=== PATIENT | female | born 1945 | race Caucasian/White ===

== ENCOUNTER 2017-06-29 09:16 | Emergency (ER) | payer MEDICARE, BC ==
[2017-06-29 09:52] VITALS: BP 131/66
--- NOTE | 2017-06-29 10:14 | UC ---
Complaint Female HPI - HPI Summary HPI Summary: 71F presents with potential UTI. She was treated for UTI two weeks ago with cipro and flagyl. She was told she has BV. She states her symptoms resolved. She traveled here from [place] yesterday. She woke up with morning and and states she has mucous discharge and blood when she wiped. She has had blood in urine before. She denies any dysuria, flank pain. she has some frequency but is less than had last UTI. she denies any fever, nausea or vomiting. no history of kidney stones. she has a family history of bladder cancer. She had hysterectomy many years ago. - History Of Current Complaint Chief Complaint: UCGU Stated Complaint: URINARY COMPLAINT Time Seen by Provider: 06/29/17 10:02 - Allergies/Home Medications Allergies/Adverse Reactions: Allergies Allergy/AdvReac Type Severity Reaction Status Date / Time No Known Allergies Allergy Verified 06/29/17 09:40 Home Medications: Home Medications Simvastatin [Zocor 40 MG (NF)] 40 mg BEDTIME 06/29/17 [History Confirmed ] PMH/Surg Hx/FS Hx/Imm Hx Endocrine History: Other Other Endocrine History: no DM Cardiovascular History: Other Other Cardiovascular History: cholesterol - Surgical History Surgical History: Yes Surgery Procedure, Year, and Place: UPPER RIGHT COLON RESECTION D/T CX. Appendix/Spleen. Hysterectomy - Family History Known Family History: Positive: Hypertension - Social History Alcohol Use: Rare Substance Use Type: None Smoking Status (MU): Never Smoked Tobacco - Immunization History Most Recent Influenza Vaccination: NOT YET 2017 Review of Systems Constitutional: Negative Respiratory: Negative Genitourinary: Hematuria, Frequency All Other Systems Reviewed And Are Negative: Yes Physical Exam Triage Information Reviewed: Yes Appearance: Well-Appearing Vital Signs: Initial Vital Signs Temp 97.9 F 06/29/17 09:41 Pulse 65 06/29/17 09:41 Resp 16 06/29/17 09:41 BP 131/66 06/29/17 09:41 Pulse Ox 97 06/29/17 09:41 Vital Signs Reviewed: Yes Eyes: Positive: Conjunctiva Clear ENT: Positive: Hearing grossly normal Respiratory: Positive: Lungs clear, Normal breath sounds Cardiovascular: Positive: RRR Abdomen Description: Positive: Nontender, Soft, Other: - no vaginal bleeding or discharge. normal external exam. no CMT.. Negative: CVA Tenderness (R), CVA Tenderness (L) Bowel Sounds: Positive: Present Musculoskeletal: Positive: ROM Intact Neurological: Positive: Alert Psychological: Positive: Age Appropriate Behavior Skin Exam: Normal Complaint Female Dx - Course Course Of Treatment: 71F presents with potential UTI. She was treated for UTI two weeks ago with cipro and flagyl. She was told she has BV. She states her symptoms resolved. She traveled here from [place] yesterday. She woke up with morning and and states she has mucous discharge and blood when she wiped. She has had blood in urine before. She denies any dysuria, flank pain. she has some frequency but is less than had last UTI. she denies any fever, nausea or vomiting. no history of kidney stones. she has a family history of bladder cancer. has history of hysterectomy. on exam nontender abd, no CVA tenderness. normal pelvic. no bleeding or discharge. got BV cultures. on exam does not appear to have BV so will not treat. urine leuko est +2. will treat as uti as wait for final culture. gave referral to urology about hematuria. does not appear like kidney stone patient at this time but warned if developed flank pain to go to ED. medications reviewed. told to follow up about pre-HTN numbers with primary. patient understands and agrees with plan. - Differential Dx/Diagnosis Differential Diagnosis/HQI/PQRI: Ureteral Stone, Urinary Tract Infection, Other - BV Provider Diagnoses: hematuria, uti Discharge - Discharge Plan Condition: Good Disposition: HOME Prescriptions: Ciprofloxacin TAB* [Cipro 500 MG TAB*] 500 mg PO BID #10 tab Patient Education Materials: Urinary Tract Infection in Women (ED) Referrals: [facility] [place] [facility] [place] [facility] [Outside] Non Staff,Doctor [Primary Care Provider] - Armando Mackey MD [Medical Doctor] - Additional Instructions: Follow up with urology Take cipro twice a day for 5 days Go to ED if develop flank pain, nausea, vomiting or any new or worsening symptoms
--- NOTE | 2017-07-01 08:00 | UC ---
Progress - Progress Note Progress Note: notify patient NO UTI Stop cipro needs to follow up with her PCP for investigation of her microscopic hematuria
== END 2017-06-29 10:47 | disposition home or self-care (01) ==
LOC: UCCORT 09:16
DX: R31.29 Other microscopic hematuria (principal)
CPT/HCPCS: 81003; 87086; 87480; 87510; 99202; G0463

== ENCOUNTER 2017-09-11 17:45 | Emergency (ER) | payer MEDICARE, BC ==
[2017-09-11 18:04] VITALS: BP 164/69
--- NOTE | 2017-09-11 18:05 | UC ---
Cardiac HPI - HPI Summary HPI Summary: 71 yo female feeling anxious and comfortable today Had 1 1/2 hour of mod chest pressure no sob no n/v no able pain no leg pain or swelling - History of Current Complaint Chief Complaint: UCGeneralIllness Stated Complaint: HIGH BP,SOB Time Seen by Provider: 09/11/17 17:52 Hx Obtained From: Patient Onset/Duration: Sudden Onset, Lasting Hours Timing: Constant Initial Severity: Moderate Current Severity: None Chest Pain Location: Mid Sternal Character: Tightness, Heaviness Aggravating Factor(s): Nothing Alleviating Factor(s): Spontaneous Resolution Associated Signs & Symptoms: Positive: Chest Pain, Anxiety - Allergy/Home Medications Allergies/Adverse Reactions: Allergies Allergy/AdvReac Type Severity Reaction Status Date / Time No Known Allergies Allergy Verified 09/11/17 17:48 Home Medications: Home Medications LORazepam TAB(*) [Ativan 0.5 MG TAB (*)] 1 tab DAILY PRN 09/11/17 [History Confirmed 09/11/17] Lisinopril TAB* [Prinivil TAB 10 MG*] 10 mg DAILY 09/11/17 [History Confirmed ] PMH/Surg Hx/FS Hx/Imm Hx Previously Healthy: Yes Endocrine History: Dyslipidemia Cardiovascular History: Hypertension Cancer History: Colorectal Cancer, Other - lymphoma Other Cancer History: lymphoma - Surgical History Surgical History: Yes Surgery Procedure, Year, and Place: UPPER RIGHT COLON RESECTION D/T CX. Appendix/Spleen. Hysterectomy - Family History Known Family History: Positive: Hypertension - Social History Alcohol Use: Rare Substance Use Type: None Smoking Status (MU): Never Smoked Tobacco - Immunization History Most Recent Influenza Vaccination: NOT YET 2017 Review of Systems Constitutional: Negative Skin: Negative Eyes: Negative ENT: Negative Respiratory: Negative Cardiovascular: Chest Pain Gastrointestinal: Negative Genitourinary: Negative Motor: Negative Neurovascular: Negative Musculoskeletal: Negative Neurological: Negative Psychological: Negative Is Patient Immunocompromised?: No All Other Systems Reviewed And Are Negative: Yes Physical Exam Triage Information Reviewed: Yes Appearance: Well-Appearing, No Pain Distress, Well-Nourished Vital Signs Reviewed: Yes Eyes: Positive: Conjunctiva Clear ENT: Positive: Hearing grossly normal. Negative: Nasal congestion, Nasal drainage, Trismus, Hoarse voice Neck: Positive: Supple, Nontender, No Lymphadenopathy Respiratory: Positive: Lungs clear, Normal breath sounds, No respiratory distress Cardiovascular: Positive: RRR, No Murmur Abdomen Description: Positive: Nontender, No Organomegaly Musculoskeletal: Positive: ROM Intact, No Edema. Negative: Edema @ Neurological: Positive: Alert Psychological Exam: Normal Skin Exam: Normal Diagnostics - Laboratory Diagnostic Studies Completed/Ordered: Pox 100% room air comment: normal/not hypoxic - EKG Cardiac Rate: NL Cardiac Rhythm: Sinus: Normal Ectopy: None ST Segment: Normal - Assessment/Plan Course Of Treatment: refused EMS transfer/aware of risk of worsening en route/ states her grandson will drive. d/w Evelyn Garduno [employer], [facility] accepts pt. 4 baby asa given here - Clinical Impression Provider Diagnoses: chest pain/anxiety of uncertain cause Discharge - Discharge Plan Condition: Stable Disposition: TRANS HIGHER LVL OF CARE FAC Referrals: No Primary Care Phys,NOPCP [Primary Care Provider] - Additional Instructions: I spoke to the ER They are expecting you
[2017-09-11] MEDS ORDERED: Aspirin Low Dose CHEW TAB* 81 MG PO ONE (18:16)
== END 2017-09-11 18:34 | disposition short-term general hospital (02) ==
LOC: UCCORT 17:45
DX: R07.9 Chest pain, unspecified (principal); F41.9 Anxiety disorder, unspecified; Z85.72 Personal history of non-Hodgkin lymphomas; I10 Essential (primary) hypertension; E78.5 Hyperlipidemia, unspecified
CPT/HCPCS: 93005; 99212; A9270-GY; G0463